=== PATIENT | male | born 1940 | race Caucasian/White ===

== ENCOUNTER 2020-07-02 14:33 | Emergency (ER) | payer MEDICARE, BC ==
--- NOTE | 2020-07-02 14:40 | EDM.PDOC ---
ED HPI GENERAL MEDICAL PROBLEM - General Chief Complaint: Syncope Stated Complaint: LEFT ARM NUMBNESS Time Seen by Provider: 07/02/20 14:40 Source of Information: Reports: Patient, Family - History of Present Illness INITIAL COMMENTS - FREE TEXT/NARRATIVE: Fabian, 80-year-old male, presents via private vehicle after experiencing some lightheaded numbness, dizziness, with left arm discomfort and transient weakness. States he felt fairly well this morning upon awakening, but while at [facility] experienced warm flushed feeling with diaphoresis and associated dizziness. He states he was able to tough it out and did not require sitting or kneeling to resolve the event. He denies palpitations or true chest pain stating he has been very active with no concerns. In the past 2 to 3 weeks he has noted episodes of warmth flushing which there is been no determination or work-up of causation of that. He is fully vaccinated since through the [facility] for COVID- 19. His has been vaccinated as well but had a letter date. He is seen in combination with [facility] as well as [facility]. Denies any event that would precipitate this or placed him prone for any factor s. States he has been in good general health. Onset: Today, Sudden Duration: Day(s):, Getting Worse Location: Reports: Head Severity: Moderate Improves with: Reports: None, Rest Worsens with: Reports: Movement - Related Data Allergies Allergy/AdvReac Type Severity Reaction Status Date / Time aspirin Allergy Other Verified 07/02/20 15:43 lactose Allergy Other Verified 07/02/20 15:43 Penicillins Allergy Other Verified 07/02/20 15:43 Home Meds: Home Meds Cholecalciferol (Vitamin D3) [Vitamin D3] 1,000 units PO DAILY 05/08/16 [History] Cyanocobalamin (Vitamin B-12) [Vitamin B-12] 500 mcg PO DAILY 05/08/16 [History] L.acidoph,Paracasei, B.lactis [Probiotic] 1 each PO DAILY 05/08/16 [History] Pramipexole [Mirapex] 0.5 mg PO DAILY@1900 05/08/16 [History] Pyridoxine HCl (Vitamin B6) [Vitamin B-6] 100 mg PO DAILY 05/08/16 [History] Past Medical History HEENT History: Reports: Cataract, Hard of Hearing, Impaired Vision, Sinusitis Other HEENT History: hearing aides bilat Respiratory History: Reports: None Gastrointestinal History: Reports: None Musculoskeletal History: Reports: None Neurological History: Reports: Concussion - Infectious Disease History Infectious Disease History: Reports: Chicken Pox, Measles - Past Surgical History HEENT Surgical History: Reports: Cataract Surgery, Tonsillectomy GI Surgical History: Reports: Colonoscopy, Hernia, Inguinal Social & Family History - Family History HEENT: Reports: None, Other (See Below) Cardiac: Reports: None Respiratory: Reports: None, COPD (father COPD) GI: Reports: None : Reports: None OBGYN: Reports: None Musculoskeletal: Reports: None Neurological: Reports: None Psychiatric: Reports: None Endocrine/Metabolic: Reports: None Hematologic: Reports: None Immunologic: Reports: None Dermatologic: Reports: None Oncologic: Reports: Other (See Below) - Caffeine Use Caffeine Use: Reports: Coffee ED ROS GENERAL - Review of Systems Review Of Systems: Comprehensive ROS is negative, except as noted in HPI. ED EXAM, GENERAL - Physical Exam Exam: See Below Free Text/Narrative:: Alert, oriented, in no acute distress. PERRLA no icterus no injection. HEENT is negative discharge or deformity with pink moist mucous membranes with no erythema noted. Neck is soft supple with no lymphadenopathy no JVD no tenderness to palpation with no carotid bruit auscultated. There is no tenderness to the shoulders nor to the chest wall. Clear breath sounds with mild raspiness with a peak squeak type sharp on exhalation on the right lung. This is not reproducible after several deep breaths. Cardiac is S1 is 2 I do not appreciate any significant murmur. Radial pulse correlates with apical heart rate. Abdomen is soft bowel sounds are present there is no tenderness to palpation. No flank pain nor positional discomfort. No edema to the lower extremities he moves about with no difficulty and exhibits no evidence of hypotension at this time. Facial symmetry is noted with no difficulty in facial expression and motion. He is able to point his tongue. Light Coil Winder strength is strong and motion of the extremities is within normal limits with no deficit nor drift appreciated. Lower extremities are free of any deficit with plantar flexion dorsiflexion as well as able to rise from the chair with no difficulty well-balanced gait as he moves from the chair to the cart for further supine examination. No deficits are appreciated. Minimal change in what he previously described as the dizziness lightheadedness was developed during this move. There is no noted palpitations during examination. EKG shows bradycardic with a possible atrial enlargement with right bundle branch block. No comparisons are available. #1 Interpretation EKG Date: 07/02/20 Time: 14:59 Rhythm: NSR Knifley: Normal P-Wave: Present QRS: RBBB ST-T: Normal QT: Normal Comparison: NA - No Prior EKG (no comparison available. No Stemi) Course - Vital Signs Last Recorded V/S: Last Vital Signs Temp 98.1 F 07/02/20 16:34 Pulse 63 07/02/20 16:34 Resp 16 07/02/20 16:34 BP 143/80 H 07/02/20 16:34 Pulse Ox 96 07/02/20 16:34 - Orders/Labs/Meds Orders: Active Orders 24 hr Category Date Time Status EKG Documentation Completion [RC] ASDIRECTED Care 07/02/20 14:52 Active Peripheral IV Care [RC] . DIRECTED Care 07/02/20 14:56 Active Sodium Chloride 0.9% [Saline Flush] Med 07/02/20 14:56 Active 10 ml FLUSH Q8HR PRN Peripheral IV Insertion Adult [OM.PC] Routine Oth 07/02/20 14:56 Ordered EKG 12 Lead [EK] Urgent Ther 07/02/20 14:52 Ordered Medication Orders Sodium Chloride (Sodium Chloride 0.9% 10 Ml Syringe) 10 ml FLUSH Q8HR PRN PRN Reason: keep vein open Labs: Laboratory Tests 07/02/20 07/02/20 07/02/20 Range/Units 15:52 15:52 15:52 WBC 4.65 L (5.00-10.00) 10^3/uL RBC 4.30 L (4.50-6.00) 10^6/uL Hgb 14.5 (13.0-17.0) g/dL Hct 40.8 (40.0-52.0) % MCV 94.9 H (82.0-92.0) fL MCH 33.7 H (27.0-31.0) pg MCHC 35.5 (32.0-36.0) g/dL RDW 12.7 (11.5-14.5) % Plt Count 146 L (150-400) 10^3/uL MPV 10.4 (7.4-10.4) fL Immature Gran % (Auto) 0.2 (0.0-5.0) % Neut % (Auto) 42.8 L (50.0-70.0) % Lymph % (Auto) 44.7 H (20.0-40.0) % Millard % (Auto) 8.8 H (2.0-8.0) % Eos % (Auto) 2.6 (1.0-3.0) % Baso % (Auto) 0.9 (0.0-1.0) % Neut # (Auto) 1.99 L (2.50-7.00) 10^3/uL Lymph # (Auto) 2.08 (1.00-4.00) 10^3/uL Millard # (Auto) 0.41 (0.10-0.80) 10^3/uL Eos # (Auto) 0.12 (0.10-0.30) 10^3/uL Baso # (Auto) 0.04 (0.00-0.10) 10^3/uL Immature Gran # (Auto) 0.01 (0.00-0.50) 10^3/uL Sodium 141 (136-145) mmol/L Potassium 4.3 (3.5-5.1) mmol/L Chloride 106 (98-107) mmol/L Carbon Dioxide 24.4 (21.0-32.0) mmol/L Anion Gap 14.9 (5-15) mmol/L BUN 22 H (7-18) mg/dL Creatinine 0.94 (0.51-1.17) mg/dL Est Cr Clr Drug Dosing 60.32 mL/min Estimated GFR (MDRD) > 60 mL/min Glucose 116 (70-140) mg/dL Lactic Acid 1.2 (0.4-2.0) mmol/L Calcium 8.4 L (8.7-10.3) mg/dL Total Bilirubin 0.3 (0.2-1.0) mg/dL AST 23 (15-37) U/L ALT 25 (14-63) U/L Alkaline Phosphatase 130 H (46-116) U/L Creatine Kinase 77 (26-276) U/L CK-MB (CK-2) 1.05 (0.00-3.60) ng/mL Troponin I < 0.017 (0.000-0.056) ng/mL C-Reactive Protein < 0.4 (0.0-0.9) mg/dL Total Protein 6.3 L (6.4-8.2) g/dL Albumin 3.29 L (3.40-5.00) g/dL Specimen Type Urine Color (YELLOW) Urine Appearance (CLEAR) Urine pH (5.0-9.0) Ur Specific Britton (1.005-1.030) Urine Protein (NEGATIVE) mg/dL Urine Glucose (UA) (NEGATIVE) mg/dL Urine Ketones (NEGATIVE) mg/dL Urine Occult Blood (NEGATIVE) Urine Nitrite (NEGATIVE) Urine Bilirubin (NEGATIVE) Urine Urobilinogen (0.2-1.0) E.U./dL Ur Leukocyte Esterase (NEGATIVE) 07/02/20 Range/Units 17:15 WBC (5.00-10.00) 10^3/uL RBC (4.50-6.00) 10^6/uL Hgb (13.0-17.0) g/dL Hct (40.0-52.0) % MCV (82.0-92.0) fL MCH (27.0-31.0) pg MCHC (32.0-36.0) g/dL RDW (11.5-14.5) % Plt Count (150-400) 10^3/uL MPV (7.4-10.4) fL Immature Gran % (Auto) (0.0-5.0) % Neut % (Auto) (50.0-70.0) % Lymph % (Auto) (20.0-40.0) % Millard % (Auto) (2.0-8.0) % Eos % (Auto) (1.0-3.0) % Baso % (Auto) (0.0-1.0) % Neut # (Auto) (2.50-7.00) 10^3/uL Lymph # (Auto) (1.00-4.00) 10^3/uL Millard # (Auto) (0.10-0.80) 10^3/uL Eos # (Auto) (0.10-0.30) 10^3/uL Baso # (Auto) (0.00-0.10) 10^3/uL Immature Gran # (Auto) (0.00-0.50) 10^3/uL Sodium (136-145) mmol/L Potassium (3.5-5.1) mmol/L Chloride (98-107) mmol/L Carbon Dioxide (21.0-32.0) mmol/L Anion Gap (5-15) mmol/L BUN (7-18) mg/dL Creatinine (0.51-1.17) mg/dL Est Cr Clr Drug Dosing mL/min Estimated GFR (MDRD) mL/min Glucose (70-140) mg/dL Lactic Acid (0.4-2.0) mmol/L Calcium (8.7-10.3) mg/dL Total Bilirubin (0.2-1.0) mg/dL AST (15-37) U/L ALT (14-63) U/L Alkaline Phosphatase (46-116) U/L Creatine Kinase (26-276) U/L CK-MB (CK-2) (0.00-3.60) ng/mL Troponin I (0.000-0.056) ng/mL C-Reactive Protein (0.0-0.9) mg/dL Total Protein (6.4-8.2) g/dL Albumin (3.40-5.00) g/dL Specimen Type Urincc Urine Color Yellow (YELLOW) Urine Appearance Clear (CLEAR) Urine pH 7.5 (5.0-9.0) Ur Specific Britton 1.020 (1.005-1.030) Urine Protein Negative (NEGATIVE) mg/dL Urine Glucose (UA) Negative (NEGATIVE) mg/dL Urine Ketones Negative (NEGATIVE) mg/dL Urine Occult Blood Negative (NEGATIVE) Urine Nitrite Negative (NEGATIVE) Urine Bilirubin Negative (NEGATIVE) Urine Urobilinogen 0.2 (0.2-1.0) E.U./dL Ur Leukocyte Esterase Negative (NEGATIVE) Meds: Medications Generic Name Dose Route Start Last Admin Trade Name Freq PRN Reason Stop Dose Admin Sodium Chloride 10 ml 07/02/20 14:56 Sodium Chloride 0.9% 10 Ml Syringe FLUSH Q8HR PRN keep vein open Discontinued Medications Generic Name Dose Route Start Last Admin Trade Name Freq PRN Reason Stop Dose Admin Sodium Chloride 1,000 mls @ 999 mls/hr 07/02/20 14:56 07/02/20 16:00 Normal Saline IV 07/02/20 15:56 999 mls/hr .BOLUS ONE Administration - Re-Assessments/Exams Free Text/Narrative Re-Assessment/Exam: 07/02/20 18:47 Was noted that on occasion with bedside monitor heart rate would drop into the lower 50s and on 1 or 2 occasions upper 40s. There was no evidence of complaint at that time. Remote correlation of timolol eyedrop inducing bradycardia is given and will be held until reevaluated tomorrow. Departure - Departure Time of Disposition: 18:10 Disposition: Home, Self-Care 01 Condition: Good Clinical Impression: Bradycardia, Near syncope - Discharge Information *PRESCRIPTION DRUG MONITORING PROGRAM REVIEWED*: Not Applicable *COPY OF PRESCRIPTION DRUG MONITORING REPORT IN PATIENT [place]: Not Applicable Referrals: Noni Monge MD [Primary Care Provider] - Navya Felix MD [Physician] - Forms: ED Department Discharge Additional Instructions: Call the clinic in the morning and explained to them you need a post emergency department visit versus your preop slot with Dr. Molina. Continue all your medicines except do not take the Timolol eyedrop until after your appointment. It is possible that this could be causing your slow heart rate. Make sure you drink plenty of fluid and stay well-hydrated. Avoid any exertional activity until after your appointment tomorrow. Copies of everything will be sent to the [facility] for Dr. Molina availability to review. Call or return if any thing changes between now and the opening of the clinic or if unable to maintain clinic schedule. Avoid lifting, straining or any exertional activity at this time Sepsis Event Note (ED) - Focused Exam Vital Signs: Vital Signs Temp Pulse Resp BP Pulse Ox 07/02/20 16:34 98.1 F 63 16 143/80 H 96 - Problem List & Annotations (1) Near syncope SNOMED Code(s): 480472980 Code(s): R55 - SYNCOPE AND COLLAPSE Status: Acute Current Visit: Yes (2) Clammy skin SNOMED Code(s): 632469718 Code(s): R23.1 - PALLOR Status: Acute Current Visit: Yes (3) Left arm weakness SNOMED Code(s): 563333210 Code(s): R29.898 - OT SYMPTOMS AND SIGNS INVOLVING THE MUSCULOSKELETAL SYSTEM Status: Acute Current Visit: Yes (4) Bradycardia SNOMED Code(s): 00238134 Code(s): R00.1 - BRADYCARDIA, UNSPECIFIED Status: Acute Priority: High Current Visit: Yes - Problem List Review Problem List Initiated/Reviewed/Updated: Yes - My Orders Last 24 Hours: My Active Orders 07/02/20 14:52 EKG Documentation Completion [RC] ASDIRECTED EKG 12 Lead [EK] Urgent 07/02/20 14:56 Peripheral IV Care [RC] . DIRECTED Sodium Chloride 0.9% [Saline Flush] 10 ml FLUSH Q8HR PRN Peripheral IV Insertion Adult [OM.PC] Routine - Assessment/Plan Last 24 Hours: My Active Orders 07/02/20 14:52 EKG Documentation Completion [RC] ASDIRECTED EKG 12 Lead [EK] Urgent 07/02/20 14:56 Peripheral IV Care [RC] . DIRECTED Sodium Chloride 0.9% [Saline Flush] 10 ml FLUSH Q8HR PRN Peripheral IV Insertion Adult [OM.PC] Routine Plan: Call the clinic in the morning and explained to them you need a post emergency department visit versus your preop slot with Dr. Molina. Continue all your medicines except do not take the Timolol eyedrop until after your appointment. It is possible that this could be causing your slow heart rate. Make sure you drink plenty of fluid and stay well-hydrated. Avoid any exertional activity until after your appointment tomorrow. Copies of everything will be sent to the [facility] for Dr. Molina availability to review. Call or return if any thing changes between now and the opening of the clinic or if unable to maintain clinic schedule. Avoid lifting, straining or any exertional activity at this time.
[2020-07-02] MEDS ORDERED: Sodium Chloride 0.9% 1,000 ML IV ONE (14:56)
[2020-07-02] MEDS ORDERED: Sodium Chloride 0.9% 10 ML Syringe FLUSH PRN (14:56)
--- NOTE | 2020-07-02 15:21 | CR ---
[id number] RAD/RAD Chest PA And Lateral EXAM: RAD Chest PA And Lateral INDICATION: FATIGUE, DIZZINESS. COMPARISON: May 08, 2016. DISCUSSION: Cardiomediastinal silhouette is normal in size and contour. Lungs are clear. No pleural effusion or pneumothorax. IMPRESSION: No acute findings. Isaac Zapata MD 07/02/20 2158 Thank you for allowing us to participate in the care of your patient.
[2020-07-02 16:38] VITALS: BP 143/80; PULSE 63
[2020-07-02 16:46] LABS: ANION GAP 14.9 mmol/L (5-15); CHLORIDE,CL 106 mmol/L (98-107); SODIUM,NA 141 mmol/L (136-145)
== END 2020-07-02 18:30 | disposition home or self-care (01) ==
LOC: KA.ED 14:33
DX: R55 Syncope and collapse (principal); R00.1 Bradycardia, unspecified; Z88.0 Allergy status to penicillin; Z91.011 Allergy to milk products
CPT/HCPCS: 71046; 80053; 81003; 82550; 82553; 83605; 84484; 85025; 86140; 93005; 99284; 99285-25; J7030